=== PATIENT | female | born 1960 | race Caucasian/White ===

== ENCOUNTER → 2020-05-09 09:47 | Outpatient (BNVA) | payer BC, SELFPAY | PROVIDERS: Family Provider Family Medicine; Referring Provider Family Medicine; Visit Provider Specialist | DX: R20.0 Anesthesia of skin (principal); R20.2 Paresthesia of skin; M79.662 Pain in left lower leg; M79.661 Pain in right lower leg; G62.9 Polyneuropathy, unspecified | CPT/HCPCS: 95910 ==

== ENCOUNTER → 2022-07-23 12:02 | Outpatient (BNVA) | payer BC, SELFPAY | PROVIDERS: Family Provider Family Medicine; PCP Family Medicine; Visit Provider Family Medicine | DX: R79.89 Other specified abnormal findings of blood chemistry (principal) | CPT/HCPCS: 80053; 80061 ==

== ENCOUNTER 2023-05-07 07:14 | Day surgery (SDC) | payer BC, SELFPAY ==
[2023-05-05 13:12] VITALS: BMI 22.6
[2023-05-07 07:30] VITALS: BP 110/71; PULSE 73; RESP 18; TEMP 36.6; O2SAT 97
[2023-05-07] MEDS: sodium chloride 0.9% 1,000 ML 30 ML IV (07:40)
--- NOTE | 2023-05-07 08:07 | ANES.PREANE2 ---
Pre-Anesthetic Assessment Height/Weight: Height 1.6 m Weight 58.06 kg Temp Pulse Resp BP Pulse Ox O2 Del Method 97.8 F 73 18 110/71 97 Room Air 05/07/23 07:30 05/07/23 07:30 05/07/23 07:30 05/07/23 07:30 05/07/23 07:30 05/07/23 07:30 Operation Date: 05/07/23 08:30 Proposed Procedures p EGD(Not Applicable) - Michael Nuno DO s Colonoscopy(Not Applicable) - Michael Nuno DO Was Beta Landon taken within 24 hours: N/A Was Clonidine taken within 24 hours: N/A Last intake: Intake Last Liquid Date 05/06/23 Last Liquid Time 21:00 Last Solid Date 05/05/23 Last Solid Time 21:00 Social No alcohol and No tobacco Exam alert, oriented x 3, clear to auscultation bilaterally and regular rate & rhythm Airway Submandibular: within normal limits Cervical ROM: within normal limits Mallampati: Class III Comments: Comments: bridge uper back right History/ROS No significant history except as noted and No significant complaints Pulmonary None reported CV/HEM None reported None reported Hepatic None reported elevated LFTs GI Gastroesophageal Reflux Disease uncontrolled Musc/skel None reported Neuropsych None reported Anesthetic Plan ASA status: 2 Anesthesia: Anesthesia Evaluation and MAC Risk of > 500 ml blood loss (7ml/kg in children): Yes, adequate IV access and fluids planned Medications/Allergies Home Medications Medication Instructions Recorded Confirmed Last Taken Type pantoprazole 40 mg tablet,delayed 40 mg PO BID 90 days #180 tabs 03/20/23 05/05/23 05/05/23 Rx release (Protonix) ondansetron 8 mg disintegrating 8 mg PO Q8H PRN nausea and 05/06/23 05/07/23 05/06/23 Rx tablet vomiting #20 tabs Allergies Allergy/AdvReac Type Severity Reaction Status Date / Time tolterodine [From Detrol] AdvReac Intermediate rash Verified 05/05/23 13:23 Current Medications Generic Name Dose Route Start Last Admin Trade Name Freq PRN Reason Stop Dose Admin Sodium Chloride 1,000 mls @ 30 mls/hr 05/07/23 07:30 05/07/23 07:40 Sodium Chloride 0.9% IV 05/08/23 07:29 30 mls/hr .Q24H MONA Administration PFSH Anesthesia Medical History (Updated 03/20/23 @ 14:15 by Michael Nuno DO) Actinic keratoses Surgical History (Updated 03/20/23 @ 14:15 by Michael Nuno DO) History of esophagogastroduodenoscopy (EGD) 15 YRS AGO History of reversal of tubal ligation Hx of colonoscopy AGE 51 Hx of tubal ligation Family History Father Cancer BONE AND LIVER Mother Alzheimer disease Social History Smoking and tobacco status: never smoked Alcohol intake: never Data Anesthesia Cardiac Studies: No Data to Display
--- NOTE | 2023-05-07 08:09 | PM.HP ---
Providers/Chief Complaint Primary Care Provider: Robin Rose MD Chief Complaint: Z12.11, K92.0 History of Present Illness Eliana Skinner is a 62 year old female Medications/Allergies Home Medications Medication Instructions Recorded Confirmed Last Taken Type pantoprazole 40 mg tablet,delayed 40 mg PO BID 90 days #180 tabs 03/20/23 05/05/23 05/05/23 Rx release (Protonix) ondansetron 8 mg disintegrating 8 mg PO Q8H PRN nausea and 05/06/23 05/07/23 05/06/23 Rx tablet vomiting #20 tabs Allergies Allergy/AdvReac Type Severity Reaction Status Date / Time tolterodine [From Detrol] AdvReac Intermediate rash Verified 05/05/23 13:23 PFSH Acute PFSH: Medical History (Updated 03/20/23 @ 14:15 by Michael Nuno DO) Actinic keratoses Surgical History (Updated 03/20/23 @ 14:15 by Michael Nuno DO) History of esophagogastroduodenoscopy (EGD) 15 YRS AGO History of reversal of tubal ligation Hx of colonoscopy AGE 51 Hx of tubal ligation Family History Father Cancer BONE AND LIVER Mother Alzheimer disease Social History Smoking and tobacco status: never smoked Alcohol intake: never Vitals/I&O/Wt Last Vital Signs Temp 97.8 F 05/07/23 07:30 Pulse 73 05/07/23 07:30 Resp 18 05/07/23 07:30 BP 110/71 05/07/23 07:30 Pulse Ox 97 05/07/23 07:30 O2 Del Method Room Air 05/07/23 07:30 Weight last 48 hrs Weight 128 lb A&P Assessment and plan (1) GERD (gastroesophageal reflux disease): (2) Colon cancer screening: Plan EGD and colonoscopy Attestations Medical Necessity Statement*: Home Coding Level of Care Code Acute Code for Chg Fwd Diagnoses GERD (gastroesophageal reflux disease) K21.9 Colon cancer screening Z12.11
[2023-05-07 09:01] VITALS: BP 101/69; PULSE 77; RESP 16; TEMP 36.2; O2SAT 93
[2023-05-07 09:20] VITALS: BP 128/78; PULSE 76; RESP 16; O2SAT 96
--- NOTE | 2023-05-07 14:28 | ANE.PACU2 ---
Inpatient post-anesthesia follow up: Airway intact: Yes Vital signs: Temperature 97.1 F Pulse Rate 76 Respiratory Rate 16 Blood Pressure 128/78 Pulse Oximetry 96 Oxygen Delivery Me thod Room Air Oxygen Flow Rate Fraction of Inspir ed Oxygen Hydration adequate: Yes Nausea and vomiting: No Pain level: 2 Mental status: Baseline
== END 2023-05-07 09:29 | disposition home or self-care (01) ==
PROVIDERS: PCP Family Medicine; Visit Provider Surgery
PROC: 0DJ08ZZ Inspection of Upper Intestinal Tract, Via Natural or Artificial Opening Endoscopic (ICD-10-PCS; CPT 43235; principal; 2023-05-07 08:30)
PROC: 0DJD8ZZ Inspection of Lower Intestinal Tract, Via Natural or Artificial Opening Endoscopic (ICD-10-PCS; CPT 45378; 2023-05-07 08:30)
DX: Z12.11 Encounter for screening for malignant neoplasm of colon (principal); K62.1 Rectal polyp; K21.9 Gastro-esophageal reflux disease without esophagitis; K29.50 Unspecified chronic gastritis without bleeding
CPT/HCPCS: 43239; 45385; 88305; 88342; J2704; J7030

== ENCOUNTER 2023-05-16 08:46 | Outpatient (CLI) | payer BC, SELFPAY ==
--- NOTE | 2023-05-16 09:15 | US_ITS ---
WS: [id number] RIGHT UPPER QUADRANT ULTRASOUND HISTORY: abdominal pain, nausea COMPARISON: None available. Liver: 12.3 cm in length. Normal size liver and echogenicity. No bile duct dilatation or mass. Portal Vein: Normal hepatopetal flow with monophasic waveform. Gallbladder: Gallbladder is not identified. There is a large amount of shadowing from the region of t he gallbladder fossa. With no history of a prior cholecystectomy this is probably a stone filled gall bladder. No adjacent inflammation. CBD: 0.4 cm Pancreas: Normal size and echogenicity. Right kidney: 9.4 cm in length. Normal size kidney with no obstruction. Cortical cyst upper pole placido ures 1.9 x 1.5 x 1.3 cm. Aorta and IVC: Unremarkable abdominal aorta and IVC. No ascites. IMPRESSION: 1. Normal gallbladder is not identified. Large amount of shadowing from the gallbladder fossa. This i s most consistent with a stone filled gallbladder. 2. No bile duct dilatation. 3. Simple RIGHT renal cyst.
== END 2023-05-16 08:47 | disposition home or self-care (01) ==
PROVIDERS: PCP Family Medicine; Visit Provider Surgery
DX: R10.9 Unspecified abdominal pain (principal); N28.1 Cyst of kidney, acquired
CPT/HCPCS: 76705

== ENCOUNTER 2023-05-26 15:58 | Emergency (ER) | payer BC, SELFPAY ==
[2023-05-26 16:11] VITALS: BP 126/72; PULSE 64; RESP 16; TEMP 36.6; O2SAT 98; BMI 21.7
--- NOTE | 2023-05-26 16:33 | W.ED.ABDPA2 ---
Documented by User: Ru Felix DO 05/27/23 07:39 HPI - Abdominal Pain General: Chief Complaint: Abdominal Pain Stated Complaint: abd pain Time Seen by Provider: 05/26/23 16:20 Source: patient Mode of arrival: ambulatory History of Present Illness: 62-year-old female presents emergency room with complaint of right upper quadrant abdominal pain that began last night has become severe. She has a known history of cholelithiasis is seen general surgery and is scheduled to have. She has been very nauseous no vomiting or diarrhea. Symptoms began overnight and progressively worsened. She has previously seen surgery and is scheduled to have her gallbladder removed for symptomatic cholelithiasis. MD elicited complaint: abdominal pain Pertinent past history: other (Cholelithiasis) Onset (ago): hour(s) Pain Consistency: constant Location: Epigastric and RUQ Severity: severe Quality: sharp Migration to: LUQ Exacerbating factors: eating Relieving factors: nothing Associated Symptoms: Reports anorexia, bloating, GI cramping, nausea, poor appetite and vomiting; Denies belching, change in bowel habits, change in stool character, chills, coffee ground emesis, constipation, diarrhea, dyspepsia, dysuria, excessive flatus, fever(s), heartburn, hematochezia, hematuria, hematemesis, fecal incontinence, loose stools, melena and syncope Review of Systems Const: Denies: fever(s), chills, fatigue or malaise Card: Denies: chest pain, palpitations, irregular heart rhythm or syncope Resp: Denies: dyspnea, productive cough or non-productive cough GI: Reports: abdominal pain, nausea, vomiting, bloating and GI cramping; Denies: hematemesis, coffee ground emesis, heartburn, diarrhea, constipation, belching, excessive flatus, fecal incontinence, change in bowel habits, change in stool character, hematochezia or melena : Denies: dysuria or hematuria Skin/Breast: Denies: rash or pruritus PFSH ED PFSH: Medical History Actinic keratoses Surgical History History of esophagogastroduodenoscopy (EGD) 15 YRS AGO History of reversal of tubal ligation Hx of colonoscopy AGE 51 Hx of tubal ligation Family History Father Cancer BONE AND LIVER Mother Alzheimer disease Social History Smoking and tobacco status: never smoked Alcohol intake: never Physical Exam Const: COMMON NORMALS: no acute distress GENERAL APPEARANCE: cooperative ORIENTATION/CONSCIOUSNESS: Yes awake, Yes oriented to person, Yes oriented to place and Yes oriented to time HENMT: COMMON NORMALS: normocephalic, atraumatic and hearing grossly normal bilaterally HEAD & SCALP: normocephalic and atraumatic Resp: COMMON NORMALS: normal respiratory effort, No retractions, No use of accessory muscles and clear to auscultation bilaterally AUSCULTATION: clear to auscultation bilaterally Cardio: COMMON NORMALS: regular rate, regular rhythm and No murmurs present (Cardio) RATE: regular rate RHYTHM: regular rhythm GI: OTHER: Epigastric and right upper quadrant tenderness positive Lion sign. Extremity: COMMON NORMALS: normal to inspection, capillary refill normal, no clubbing, cyanosis or edema, no calf tenderness and no pedal edema Neuro: SENSORIUM/ORIENTATION: Yes oriented to person, Yes oriented to place and Yes oriented to time Skin: COMMON NORMALS: no rashes or lesions noted GENERAL SKIN EXAM: no rashes or lesions noted Course Vital Signs: Vital signs: Vital Signs Temperature 97.8 F 05/26/23 16:11 Pulse Rate 70 05/26/23 20:51 Respiratory Rate 16 05/26/23 20:51 Blood Pressure 126/72 05/26/23 16:11 Pulse Oximetry 99 05/26/23 20:51 Oxygen Delivery Il thod Room Air 05/26/23 16:11 MDM - Abdominal Pain Medical Decision Making Labs reviewed patient has evidence of choledocholithiasis. She started on Zosyn. Will need transferred for ERCP. Care signed out to Dr. Amado at change of shift. See final notes for diagnosis and disposition. Patient was turned over to me by daytime doc at shift change. Pt apPeers to have right upper quadrant pain and choledocholithiasis based on lab and imaging patient was given 4 mg of morphine, 1 L of normal saline and Zosyn 3.375 g. Patient was eventually accepted at [facility] by Dr. Varghese hospitalist. Medical Records I reviewed the patient's medical records. Lab Data I reviewed the patient's lab results. 05/26/23 16:44 05/26/23 16:44 Labs/Radiology: Radiology Impressions Gallbladder Ultrasound 05/26/23 17:35 IMPRESSION: 1. The gallbladder is filled with stones associated with mild dilatation of the common bile duct measuring 8.1 mm. 2. Gallbladder wall is not optimally evaluated secondary to adjacent shadowing stones however is possibly thickened measuring 4.3 mm, raising concern for acute cholecystitis. Please correlate clinically. Laboratory Results WBC 7.03 10^3/uL (3.29-11.43) 05/26/23 16:44 RBC 4.25 10^6/uL (3.85-5.65) 05/26/23 16:44 Hgb 13.60 g/dL (11.27-16.99) 05/26/23 16:44 Hct 40.9 % (36-47) 05/26/23 16:44 MCV 96.2 fl (85-98) 05/26/23 16:44 MCH 32.0 pg (27-33) 05/26/23 16:44 MCHC 33.3 g/dL (30-55) 05/26/23 16:44 RDW 12.5 % (12.1-15.1) 05/26/23 16:44 Plt Count 231 10^3/cmm (157-399) 05/26/23 16:44 MPV 10.8 fL (7.4-10.4) H 05/26/23 16:44 Neut % (Auto) 81.0 % 05/26/23 16:44 Lymph % (Auto) 9.4 % 05/26/23 16:44 [place] % (Auto) 8.3 % 05/26/23 16:44 Eos % (Auto) 0.4 % 05/26/23 16:44 Baso % (Auto) 0.3 % 05/26/23 16:44 Neut # (Auto) 5.70 10^3/uL (1.8-7.7) 05/26/23 16:44 Lymph # (Auto) 0.7 10^3/uL (0.8-4.8) L 05/26/23 16:44 [place] # (Auto) 0.6 10^3/uL (0.2-0.9) 05/26/23 16:44 Eos # (Auto) 0.0 10^3/uL (0.0-0.8) 05/26/23 16:44 Baso # (Auto) 0.0 10^3/uL (0.0-0.1) 05/26/23 16:44 Nucleated RBC % (auto) 0 % 05/26/23 16:44 Nucleated RBCs # 0.0 /100WBC 05/26/23 16:44 Sodium 140 mmol/L (136-145) 05/26/23 16:44 Potassium 4.2 mmol/L (3.5-5.1) 05/26/23 16:44 Chloride 101 mmol/L (98-107) 05/26/23 16:44 Carbon Dioxide 26 mmol/L (22-29) 05/26/23 16:44 Anion Gap 17.2 (5-19) 05/26/23 16:44 BUN 12 mg/dL (8-23) 05/26/23 16:44 Creatinine 0.5 mg/dL (0.5-0.9) 05/26/23 16:44 GFR Calculation 125.4 mL/min (90-130) 05/26/23 16:44 Glucose 131 mg/dL (65-115) H 05/26/23 16:44 Calculated Osmolality 292 mOsm/kg (285-295) 05/26/23 16:44 Lactic Acid 1.2 mmol/L (0.5-2.2) 05/26/23 16:44 Calcium 9.9 mg/dL (8.5-10.5) 05/26/23 16:44 Total Bilirubin 2.8 mg/dL (0.15-1.2) H 05/26/23 16:44 AST 219 U/L (0-32) H 05/26/23 16:44 ALT 182 U/L (0-33) H 05/26/23 16:44 Alkaline Phosphatase 361 U/L (35-105) H 05/26/23 16:44 Total Protein 7.7 g/dL (6.6-8.7) 05/26/23 16:44 Albumin 4.4 g/dL (3.5-5.2) 05/26/23 16:44 Globulin 3.3 g/dL (1.3-4.6) 05/26/23 16:44 Lipase > 3826 U/L (13-60) H 05/26/23 16:44 Discharge Plan Discharge Patient Disposition: Xfer Short-Term Hosp Clinical Impression: Choledocholithiasis Condition: Stable Referrals: Robin Rose MD [Primary Care Provider] - Coding Level of Care Code ED Repairer Auto Clocks for Chg Fwd Documented by User: Richard Amado DO 05/26/23 18:48 HPI - Abdominal Pain General: Chief Complaint: Abdominal Pain Stated Complaint: abd pain Time Seen by Provider: 05/26/23 16:20 Review of Systems General: Reports: 10 or more systems reviewed and unremarkable except in HPI and below PFSH ED PFSH: Medical History Actinic keratoses Surgical History History of esophagogastroduodenoscopy (EGD) 15 YRS AGO History of reversal of tubal ligation Hx of colonoscopy AGE 51 Hx of tubal ligation Family History Father Cancer BONE AND LIVER Mother Alzheimer disease Social History Smoking and tobacco status: never smoked Alcohol intake: never Physical Exam Const: COMMON NORMALS: average body habitus, patient oriented x3, no limitations, healthy appearing, alert and well nourished HENMT: COMMON NORMALS: normocephalic, atraumatic, hearing grossly normal bilaterally, Normal external nose present and moist oral mucous membranes HEAD & SCALP: normocephalic and atraumatic NOSE: Normal external nose present Neck/C-Spine: COMMON NORMALS: full ROM, no lymphadenopathy, supple, no meningeal signs, no JVD and Thyroid normal THYROID: Thyroid normal Lymph: LYMPHATIC: no lymphadenopathy noted Chest: COMMONS NORMALS: normal inspection of the chest and normal palpation of entire chest wall Resp: COMMON NORMALS: normal respiratory effort, No retractions, No use of accessory muscles and clear to auscultation bilaterally AUSCULTATION: clear to auscultation bilaterally Cardio: COMMON NORMALS: no JVD, regular rate, regular rhythm, S1 normal heart sound present, S2 normal heart sound present, No gallops present (Cardio), No clicks present (Cardio), No murmurs present (Cardio) and No rub (Cardio) RATE: regular rate RHYTHM: regular rhythm HEART SOUNDS: S1 normal heart sound present and S2 normal heart sound present GI: COMMON NORMALS: Normal to inspection, nondistended, normoactive bowel sounds present, Soft to palpation, No hepatosplenomegaly present and no masses; negative for non-tender (Tender to palpate over right upper quadrant) PALPATION: Yes Soft to palpation and Yes No hepatosplenomegaly present : COMMON NORMALS: Yes no CVA tenderness BLADDER/KIDNEY EXAM: Yes no CVA tenderness Back/Pelvis: COMMON NORMALS: no CVA tenderness Neuro: COMMON NORMALS: patient oriented x3 SENSORIUM/ORIENTATION: Yes alert MENINGEAL SIGNS: Yes no meningeal signs Course Vital Signs: Vital signs: Vital Signs Temperature 97.8 F 05/26/23 16:11 Pulse Rate 70 05/26/23 20:51 Respiratory Rate 16 05/26/23 20:51 Blood Pressure 126/72 05/26/23 16:11 Pulse Oximetry 99 05/26/23 20:51 Oxygen Delivery Il thod Room Air 05/26/23 16:11 MDM - Abdominal Pain Medical Decision Making Patient was turned over to pr by daytime doc at shift change. Pt apPeers to have right upper quadrant pain and choledocholithiasis based on lab and imaging patient was given 4 mg of morphine, 1 L of normal saline and Zosyn 3.375 g. Patient was eventually accepted at [facility] by Dr. Varghese hospitalist. Differential Diagnosis Unlikely abdominal pain, acute appendicitis, calculus of kidney, constipation, diverticulitis, endometriosis, gastroenteritis, pancreatitis or small bowel obstruction Medical Records I reviewed the patient's medical records. Lab Data I reviewed the patient's lab results. 05/26/23 16:44 05/26/23 16:44 Labs/Radiology: Radiology Impressions Gallbladder Ultrasound 05/26/23 17:35 IMPRESSION: 1. The gallbladder is filled with stones associated with mild dilatation of the common bile duct measuring 8.1 mm. 2. Gallbladder wall is not optimally evaluated secondary to adjacent shadowing stones however is possibly thickened measuring 4.3 mm, raising concern for acute cholecystitis. Please correlate clinically. Laboratory Results WBC 7.03 10^3/uL (3.29-11.43) 05/26/23 16:44 RBC 4.25 10^6/uL (3.85-5.65) 05/26/23 16:44 Hgb 13.60 g/dL (11.27-16.99) 05/26/23 16:44 Hct 40.9 % (36-47) 05/26/23 16:44 MCV 96.2 fl (85-98) 05/26/23 16:44 MCH 32.0 pg (27-33) 05/26/23 16:44 MCHC 33.3 g/dL (30-55) 05/26/23 16:44 RDW 12.5 % (12.1-15.1) 05/26/23 16:44 Plt Count 231 10^3/cmm (157-399) 05/26/23 16:44 MPV 10.8 fL (7.4-10.4) H 05/26/23 16:44 Neut % (Auto) 81.0 % 05/26/23 16:44 Lymph % (Auto) 9.4 % 05/26/23 16:44 [place] % (Auto) 8.3 % 05/26/23 16:44 Eos % (Auto) 0.4 % 05/26/23 16:44 Baso % (Auto) 0.3 % 05/26/23 16:44 Neut # (Auto) 5.70 10^3/uL (1.8-7.7) 05/26/23 16:44 Lymph # (Auto) 0.7 10^3/uL (0.8-4.8) L 05/26/23 16:44 [place] # (Auto) 0.6 10^3/uL (0.2-0.9) 05/26/23 16:44 Eos # (Auto) 0.0 10^3/uL (0.0-0.8) 05/26/23 16:44 Baso # (Auto) 0.0 10^3/uL (0.0-0.1) 05/26/23 16:44 Nucleated RBC % (auto) 0 % 05/26/23 16:44 Nucleated RBCs # 0.0 /100WBC 05/26/23 16:44 Sodium 140 mmol/L (136-145) 05/26/23 16:44 Potassium 4.2 mmol/L (3.5-5.1) 05/26/23 16:44 Chloride 101 mmol/L (98-107) 05/26/23 16:44 Carbon Dioxide 26 mmol/L (22-29) 05/26/23 16:44 Anion Gap 17.2 (5-19) 05/26/23 16:44 BUN 12 mg/dL (8-23) 05/26/23 16:44 Creatinine 0.5 mg/dL (0.5-0.9) 05/26/23 16:44 GFR Calculation 125.4 mL/min (90-130) 05/26/23 16:44 Glucose 131 mg/dL (65-115) H 05/26/23 16:44 Calculated Osmolality 292 mOsm/kg (285-295) 05/26/23 16:44 Lactic Acid 1.2 mmol/L (0.5-2.2) 05/26/23 16:44 Calcium 9.9 mg/dL (8.5-10.5) 05/26/23 16:44 Total Bilirubin 2.8 mg/dL (0.15-1.2) H 05/26/23 16:44 AST 219 U/L (0-32) H 05/26/23 16:44 ALT 182 U/L (0-33) H 05/26/23 16:44 Alkaline Phosphatase 361 U/L (35-105) H 05/26/23 16:44 Total Protein 7.7 g/dL (6.6-8.7) 05/26/23 16:44 Albumin 4.4 g/dL (3.5-5.2) 05/26/23 16:44 Globulin 3.3 g/dL (1.3-4.6) 05/26/23 16:44 Lipase > 3826 U/L (13-60) H 05/26/23 16:44 Discharge Plan Discharge Patient Disposition: Xfer Short-Term Hosp Clinical Impression: Choledocholithiasis Condition: Stable Referrals: Robin Rose MD [Primary Care Provider] - Coding Level of Care Code ED Repairer Auto Clocks for Amanda Corley
[2023-05-26 16:54] LABS: Basophils % 0.3 %; Eosinophils % 0.4 %; Hematocrit 40.9 % (36-47); Lymphocytes # 0.7 10^3/uL (0.8-4.8); Lymphocytes % 9.4 %; Mean Corpuscular HGB Conc 33.3 g/dL (30-55); Mean Corpuscular Volume 96.2 fl (85-98); Mean Platelet Volume 10.8 fL (7.4-10.4); Monocytes # 0.6 10^3/uL (0.2-0.9); Monocytes % 8.3 %; Nucleated Red Blood Cells % 0 %; Platelet Count 231 10^3/cmm (157-399); Red Blood Count 4.25 10^6/uL (3.85-5.65); Red Cell Distribution Width 12.5 % (12.1-15.1); White Blood Count 7.03 10^3/uL (3.29-11.43)
[2023-05-26 16:56] VITALS: RESP 18; O2SAT 98
[2023-05-26] MEDS: sodium chloride 0.9% 1,000 ML 999 ML IV (16:56)
[2023-05-26] MEDS: morphine 4 mg/mL SDV 1 mL IVP ×2 (16:56→20:26)
[2023-05-26] MEDS: ondansetron 2 mg/ML SDV 2 mL 4 MG IVP ×2 (16:57→20:24)
[2023-05-26 17:19] LABS: Alanine Aminotransferase 182 U/L (0-33); Albumin Level 4.4 g/dL (3.5-5.2); Alkaline Phosphatase 361 U/L (35-105); Anion Gap 17.2 (5-19); Aspartate Amino Transferase 219 U/L (0-32); Blood Urea Nitrogen 12 mg/dL (8-23); Calcium 9.9 mg/dL (8.5-10.5); Carbon Dioxide 26 mmol/L (22-29); Chloride 101 mmol/L (98-107); Globulin 3.3 g/dL (1.3-4.6); Glomerular Filtration Rate 125.4 mL/min (90-130); Glucose 131 mg/dL (65-115); Osmolality Calculated 292 mOsm/kg (285-295); Potassium 4.2 mmol/L (3.5-5.1); Sodium 140 mmol/L (136-145); Total Bilirubin 2.8 mg/dL (0.15-1.2); Total Protein 7.7 g/dL (6.6-8.7)
[2023-05-26 17:20] LABS: Lactic Sepsis W/Reflex 1.2 mmol/L (0.5-2.2)
--- NOTE | 2023-05-26 17:35 | USR_ITS ---
PROCEDURE INFORMATION: Exam: US Abdomen, Limited; Right Upper Quadrant Exam date and time: 05/26/2023 6:13 PM Age: 62 years old Clinical indication: Abdominal pain; Generalized; Additional info: Cholelithiasis, ruq pain TECHNIQUE: Imaging protocol: Real time ultrasound of the abdomen with image documentation. Limited exam focused on the right upper quadrant. COMPARISON: No relevant prior studies available. FINDINGS: Liver: Normal. No masses. Gallbladder: Gallbladder wall is not optimally visualized secondary to adjacent shadowing stones however is possibly thickened measuring 4.3 mm. Gallbladder is filled with stones. Biliary ducts: Common bile duct is mildly dilated measuring 8.1 mm. Pancreas: Pancreas is not visualized secondary to overlying bowel gas. Right kidney: 1.6 x 1.6 x 1.6 cm simple cyst in the right kidney. US/US gall bladder [id number] IMPRESSION: 1. The gallbladder is filled with stones associated with mild dilatation of the common bile duct measuring 8.1 mm. 2. Gallbladder wall is not optimally evaluated secondary to adjacent shadowing stones however is possibly thickened measuring 4.3 mm, raising concern for acute cholecystitis. Please correlate clinically.
--- NOTE | 2023-05-26 18:13 | DCPLANNER ---
I spoke with Eitan at [facility] and at this time they do not have a GI specialist on for an ERCP. I spoke with Wisam in Int Home no GI on for today. I called [facility] and they are on medsurg divert. Only have ICU bed available, but patient does not meet criteria for an ICU bed.
[2023-05-26] MEDS: piperacillin-tazobactam 3.375 GM in sodium chloride 0.9% (plus) 50 ML IV (18:16)
--- NOTE | 2023-05-26 20:04 | PC.NURSE ---
REport called to Mahnaz Reed rn prior to pt [place].
[2023-05-26 20:26] VITALS: RESP 16
[2023-05-26 20:51] VITALS: PULSE 70; RESP 16; O2SAT 99
== END 2023-05-26 20:52 | disposition short-term general hospital (02) ==
PROVIDERS: Emergency Provider Family Medicine; PCP Family Medicine
DX: K80.50 Calculus of bile duct without cholangitis or cholecystitis without obstruction (principal)
CPT/HCPCS: 76705; 80053; 83605; 83690; 85025; 96365; 96366; 96375; 96376; 99284; J2270; J2405; J2543; J7030

== ENCOUNTER 2023-06-27 11:25 | Emergency (ER) | payer BC, SELFPAY ==
[2023-06-27 11:34] VITALS: BP 115/73; PULSE 89; RESP 16; TEMP 36.6; O2SAT 98; BMI 21.7
--- NOTE | 2023-06-27 11:58 | CT_ITS ---
WS: [id number] CT ABDOMEN PELVIS TECHNIQUE: Contrast-enhanced CT of the abdomen and pelvis with coronal and sagittal reformatted image s. CLINICAL INFORMATION: abdominal pain, post operative COMPARISON: None. DLP: 452.[address] scans at [facility] use at least one of these dose optimization techniques: automated e xposure control; mA and/or kV adjustment per patient size (includes targeted exams where dose is matc hed to clinical indication); or iterative reconstruction. FINDINGS: Surgical drain within the gallbladder fossa. No evidence of drainable fluid collection or abscess. Ex pected pneumobilia. Common bile duct stent in place. Gallbladder is not definitely visualized and may be decompressed or resected. Recommend correlation with operative report. Tiny amount of perihepatic fluid. Portal vein and splenic vein are patent. Subsegmental atelectasis R IGHT lower lobe. Adrenal glands are normal. No hydronephrosis. Urine distended bladder. Disc base narrowing L5-S1. IMPRESSION: 1. No evidence of drainable fluid collection or abscess. 2. Surgical drain in the gallbladder fossa. Gallbladder is not definitely visualized and may be comp letely decompressed or possibly resected. Recommend correlation with surgical report. 3. Common bile duct stent in place. Tip is in the duodenum. 4. Normal portal vein and splenic vein. 5. Incidental pneumobilia. 6. No other suspicious findings. Notified Piero Vasquez MD at 06/27/2023 2:34 PM.
[2023-06-27 12:15] LABS: Basophils % 0.4 %; Eosinophils # 0.2 10^3/uL (0.0-0.8); Eosinophils % 3.1 %; Hematocrit 37.3 % (36-47); Lymphocytes % 19.5 %; Mean Corpuscular HGB Conc 33.5 g/dL (30-55); Mean Corpuscular Hemoglobin 32.3 pg (27-33); Mean Corpuscular Volume 96.4 fl (85-98); Mean Platelet Volume 10.4 fL (7.4-10.4); Monocytes # 0.8 10^3/uL (0.2-0.9); Monocytes % 15.7 %; Neutrophils # 3.14 10^3/uL (1.8-7.7); Neutrophils % 60.7 %; Nucleated Red Blood Cells % 0 %; Platelet Count 228 10^3/cmm (157-399); Red Blood Count 3.87 10^6/uL (3.85-5.65); Red Cell Distribution Width 12.2 % (12.1-15.1); White Blood Count 5.17 10^3/uL (3.29-11.43)
--- NOTE | 2023-06-27 12:22 | ED_ITS ---
HPI - Abdominal Pain General: Chief Complaint: Abdominal Pain Stated Complaint: fever, possibly infected surgery drain Time Seen by Provider: 06/27/23 11:45 History of Present Illness: This 63-year-old female presents to the ER with a nonfunctioning JOEL drain and a little bit of discharge from around the entry site of the JOEL drain. Patient was seen at [facility] on 05/28/2023 when she had a laparoscopic cholecystectomy due to acute cholecystitis. It was not successful so it was converted to an open cholecystectomy. Gallbladder could not be removed so a JOEL drain was inserted. Patient spent about 8 days in the hospital. She was subsequently discharged home. Patient notes that they went to [facility] for right upper quadrant pain on 06/12/2023. Patient's , who has been documenting the amount of discharge in the JOEL drain, noted that over the last few days, the drainage has been minimal. Yesterday there was no drainage at all. They called up to [facility] and they were advised to come to the ER to get a CT abdomen/pelvis. Patient reports that she has been having intermittent fevers especially at night. Last night, her temperature was 101. Patient is afebrile at this time. Associated Symptoms: Reports other (Drainage from around the entry site of JOEL drain.); Denies chills and dysuria Review of Systems Const: Denies: chills, body aches or change in appetite Eyes: Denies: change in vision or eye discharge ENMT: Denies: throat pain, dental pain or nasal discharge Card: Denies: chest pain or lightheadedness GI: Reports: abdominal pain (RUQ) and other (Drainage from around the entry si te of JOEL drain.) : Denies: dysuria Musc: Denies: neck pain or back pain Neuro: Denies: headache(s) or weakness in extremities Psych: Denies: depression Jeff/Lymph: Denies: easy bruising All/Imm: Denies: urticaria, tongue swelling or facial swelling PFSH ED PFSH: Medical History Actinic keratoses Surgical History History of esophagogastroduodenoscopy (EGD) 15 YRS AGO History of reversal of tubal ligation Hx of colonoscopy AGE 51 Hx of tubal ligation Family History Father Cancer BONE AND LIVER Mother Alzheimer disease Social History Smoking and tobacco status: never smoked Alcohol intake: never Physical Exam Const: COMMON NORMALS: no acute distress, patient oriented x3, no limitations and alert HENMT: COMMON NORMALS: normocephalic HEAD & SCALP: normocephalic Eye: COMMON NORMALS: EOMs intact bilaterally Neck/C-Spine: COMMON NORMALS: full ROM and supple Chest: COMMONS NORMALS: normal inspection of the chest Resp: COMMON NORMALS: normal respiratory effort, No retractions, No use of accessory muscles and clear to auscultation bilaterally AUSCULTATION: clear to auscultation bilaterally Cardio: COMMON NORMALS: regular rate, regular rhythm and No murmurs present (Cardio) RATE: regular rate RHYTHM: regular rhythm GI: OTHER: Presence of JOEL drain in the right upper quadrant. Minimal amount of purulent material on the dressing covering the entry site of the JOEL drain. JOEL drain is empty at this time. Tenderness on palpation of the right upper quadrant. Abdomen is soft, not distended and nonrigid. Normal bowel sounds. : COMMON NORMALS: Yes no CVA tenderness BLADDER/KIDNEY EXAM: Yes no CVA tenderness Back/Pelvis: COMMON NORMALS: no CVA tenderness and no thoracic nor lumbar tenderness Extremity: GENERAL: Yes normal exam except as noted Neuro: COMMON NORMALS: patient oriented x3 and no focal motor deficits SENSORIUM/ORIENTATION: Yes alert Psych: COMMON NORMALS: mental status grossly normal and cooperative Course Consultations: Consultation #1: I had an extensive discussion with Dr. Fatima with liver transplant at [facility]. Dr. Wilkins is not available at this time. Given that there is no organized collection, it is understandable that there is nothing draining out of the JOEL tube. In addition, with a normal white count, no left shift and in the absence of fever, it is reasonable to believe that patient has no systemic infection at this time. Patient's LFT is normal and there are no visible stones on the CT. Dr. South advises that it is not necessary to start patient on antibiotics. However I advised patient to clean the entry site of the JOEL tube and apply pnrn-[id number] triple antibiotics to it at least twice a day. Dr. Fatima will schedule a follow-up appointment with Dr. Wilkins on . I made patient aware of this discussion and patient agreed to go up to Dr. Wilkins's office on . Vital Signs: Vital signs: Vital Signs Temperature 97.8 F 06/27/23 11:34 Pulse Rate 70 06/27/23 15:00 Respiratory Rate 16 06/27/23 11:34 Blood Pressure 124/62 06/27/23 13:09 Pulse Oximetry 99 06/27/23 15:00 Oxygen Delivery Me thod Room Air 06/27/23 15:00 MDM - Abdominal Pain Medical Decision Making I had an extensive discussion with Dr. Fatima with liver transplant at [facility]. Dr. Wilkins is not available at this time. Given that there is no organized collection, it is understandable that there is nothing draining out of the JOEL tube. In addition, with a normal white count, no left shift and in the absence of fever, it is reasonable to believe that patient has no systemic infection at this time. Patient's LFT is normal and there are no visible stones on the CT. Dr. South advises that it is not necessary to start patient on antibiotics. However I advised patient to clean the entry site of the JOEL tube and apply yfsp-cih-[id number] triple antibiotics to it at least twice a day. Dr. Fatima will schedule a follow-up appointment with Dr. Wilkins on . I made patient aware of this discussion and patient agreed to go up to Dr. Wilkins's office on . Lab Data 06/27/23 12:10 06/27/23 12:10 Labs/Radiology: Laboratory Results WBC 5.17 10^3/uL (3.29-11.43) 06/27/23 12:10 RBC 3.87 10^6/uL (3.85-5.65) 06/27/23 12:10 Hgb 12.50 g/dL (11.27-16.99) 06/27/23 12:10 Hct 37.3 % (36-47) 06/27/23 12:10 MCV 96.4 fl (85-98) 06/27/23 12:10 MCH 32.3 pg (27-33) 06/27/23 12:10 MCHC 33.5 g/dL (30-55) 06/27/23 12:10 RDW 12.2 % (12.1-15.1) 06/27/23 12:10 Plt Count 228 10^3/cmm (157-399) 06/27/23 12:10 MPV 10.4 fL (7.4-10.4) 06/27/23 12:10 Neut % (Auto) 60.7 % 06/27/23 12:10 Lymph % (Auto) 19.5 % 06/27/23 12:10 Stewart % (Auto) 15.7 % 06/27/23 12:10 Eos % (Auto) 3.1 % 06/27/23 12:10 Baso % (Auto) 0.4 % 06/27/23 12:10 Neut # (Auto) 3.14 10^3/uL (1.8-7.7) 06/27/23 12:10 Lymph # (Auto) 1.0 10^3/uL (0.8-4.8) 06/27/23 12:10 Stewart # (Auto) 0.8 10^3/uL (0.2-0.9) 06/27/23 12:10 Eos # (Auto) 0.2 10^3/uL (0.0-0.8) 06/27/23 12:10 Baso # (Auto) 0.0 10^3/uL (0.0-0.1) 06/27/23 12:10 Nucleated RBC % (auto) 0 % 06/27/23 12:10 Nucleated RBCs # 0.0 /100WBC 06/27/23 12:10 Sodium 137 mmol/L (136-145) 06/27/23 12:10 Potassium 3.8 mmol/L (3.5-5.1) 06/27/23 12:10 Chloride 99 mmol/L (98-107) 06/27/23 12:10 Carbon Dioxide 29 mmol/L (22-29) 06/27/23 12:10 Anion Gap 12.8 (5-19) 06/27/23 12:10 BUN 12 mg/dL (8-23) 06/27/23 12:10 Creatinine 0.5 mg/dL (0.5-0.9) 06/27/23 12:10 GFR Calculation 125.0 mL/min (90-130) 06/27/23 12:10 Glucose 93 mg/dL (65-115) 06/27/23 12:10 Calculated Osmolality 283 mOsm/kg (285-295) L 06/27/23 12:10 Lactic Acid 0.7 mmol/L (0.5-2.2) 06/27/23 12:10 Calcium 9.3 mg/dL (8.5-10.5) 06/27/23 12:10 Total Bilirubin 0.8 mg/dL (0.15-1.2) 06/27/23 12:10 AST 21 U/L (0-32) 06/27/23 12:10 ALT 12 U/L (0-33) 06/27/23 12:10 Alkaline Phosphatase 87 U/L (35-105) 06/27/23 12:10 Total Protein 7.6 g/dL (6.6-8.7) 06/27/23 12:10 Albumin 4.0 g/dL (3.5-5.2) 06/27/23 12:10 Globulin 3.6 g/dL (1.3-4.6) 06/27/23 12:10 Lipase 30 U/L (13-60) 06/27/23 12:10 All radiology interpretation(s) finalized by discharge Discharge Plan Discharge Patient Disposition: Home Clinical Impression: Post-operative pain Condition: Stable Prescriptions: No Action ondansetron 8 mg tablet,disintegrating 8 mg PO Q8H PRN (Reason: nausea and vomiting) Qty: 20 0RF amoxicillin-pot clavulanate 875-125 mg tablet 1 tab PO BID Discharge Orders: Discharge ED (Routine); Ordered 06/27/23 Ordered By: Piero Vasquez Referrals: Robin Rose MD [Primary Care Provider] - Discharge Diet: Usual diet Discharge Activity: Resume usual activity Patient Instructions: Opioid Safety, Pain Management Activity Restrictions/Additional Instructions: Clean the skin surrounding the JOEL drain and apply quyh-[id number]-[id number] triple antibiotic ontment twice a day. An appointment will be set up for you with Dr. Wilkins at [facility] on . Be sure to go for the appointment. Continue taking your usual home medications. Return to the ER with any new or worsening symptoms. 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
[2023-06-27 12:51] LABS: Alanine Aminotransferase 12 U/L (0-33); Alkaline Phosphatase 87 U/L (35-105); Anion Gap 12.8 (5-19); Aspartate Amino Transferase 21 U/L (0-32); Blood Urea Nitrogen 12 mg/dL (8-23); Calcium 9.3 mg/dL (8.5-10.5); Carbon Dioxide 29 mmol/L (22-29); Chloride 99 mmol/L (98-107); Globulin 3.6 g/dL (1.3-4.6); Glucose 93 mg/dL (65-115); Lipase 30 U/L (13-60); Osmolality Calculated 283 mOsm/kg (285-295); Potassium 3.8 mmol/L (3.5-5.1); Sodium 137 mmol/L (136-145); Total Bilirubin 0.8 mg/dL (0.15-1.2); Total Protein 7.6 g/dL (6.6-8.7)
[2023-06-27 12:59] LABS: Lactic Sepsis W/Reflex 0.7 mmol/L (0.5-2.2)
[2023-06-27 13:09] VITALS: BP 124/62; PULSE 84; O2SAT 97
[2023-06-27] MEDS: iohexol 350 mg/mL 500 mL Btl (per mL) IV (13:46)
[2023-06-27 15:00] VITALS: PULSE 70; O2SAT 99
== END 2023-06-27 16:33 | disposition home or self-care (01) ==
PROVIDERS: Emergency Provider Family Medicine; PCP Family Medicine
DX: G89.18 Other acute postprocedural pain (principal)
CPT/HCPCS: 36415; 74177; 80053; 83605; 83690; 85025; 87040; 99285; Q9967

== ENCOUNTER → 2024-07-01 10:52 | Outpatient (BNVA) | payer BC, SELFPAY | PROVIDERS: PCP Family Medicine; Visit Provider Family Medicine | DX: Z00.00 Encounter for general adult medical examination without abnormal findings (principal); Z78.9 Other specified health status | CPT/HCPCS: 80053; 80061; 87624 ==

== ENCOUNTER → 2024-11-18 08:48 | Outpatient (BNVA) | payer BC, SELFPAY | PROVIDERS: PCP Family Medicine; Visit Provider Family Medicine | DX: G62.9 Polyneuropathy, unspecified (principal) | CPT/HCPCS: 80048; 82607; 83036; 84443; 86140 ==

== ENCOUNTER → 2024-12-21 09:11 | Outpatient (BNVA) | payer BC, SELFPAY | PROVIDERS: PCP Family Medicine; Visit Provider Podiatrist Foot & Ankle Surgery | DX: M79.671 Pain in right foot (principal); M79.672 Pain in left foot; G62.9 Polyneuropathy, unspecified | CPT/HCPCS: 36415; 73630; 85651; 86038; 86140; 86200; 86235; 86431 ==

== ENCOUNTER → 2025-05-12 09:49 | Outpatient (BNVA) | payer BC, SELFPAY | PROVIDERS: PCP Family Medicine; Visit Provider Family Medicine | DX: K29.70 Gastritis, unspecified, without bleeding (principal) | CPT/HCPCS: 80053; 83690; 85025 ==

== ENCOUNTER 2025-06-23 06:35 | Day surgery (SDC) | payer BC, SELFPAY ==
[2025-06-23 06:39] VITALS: BP 121/75; PULSE 65; RESP 18; TEMP 36.5; O2SAT 98; BMI 23.0
--- NOTE | 2025-06-23 07:05 | ANES.PREANE2 ---
Pre-Anesthetic Assessment Height/Weight: Height 5 ft 3 in Weight 130 lb Temp Pulse Resp BP Pulse Ox O2 Del Method 97.7 F 65 18 121/75 98 Room Air 06/23/25 06:39 06/23/25 06:39 06/23/25 06:39 06/23/25 06:39 06/23/25 06:39 06/23/25 06:39 Preop Diagnosis: GERD Operation Date: 06/23/25 07:40 Proposed Procedures p EGD EGD with Biopsy 36629 K21.9(Not Applicable) - Alex Stokes MD Was Beta Landon taken within 24 hours: N/A Was Clonidine taken within 24 hours: N/A Last intake: Intake Last Liquid Date 06/22/25 Last Liquid Time 23:00 Last Solid Date 06/22/25 Last Solid Time 14:30 Social No alcohol and No tobacco Exam alert, oriented x 3, clear to auscultation bilaterally and regular rate & rhythm Airway Submandibular: within normal limits Cervical ROM: within normal limits Mallampati: Class II Dentition: full Anesthetic Plan ASA status: 2 Anesthesia: MAC Other: No prior issues with anesthesia NPO since yesterday afternoon around 230 Patient has uncontrolled GERD and abdominal pain. States that the medications they put her on were not helping so she stopped them about 2 weeks ago Denies any cardiac or pulmonary issues Labs reviewed from 05/12/2025 and acceptable for procedure Plan for MAC anesthesia Medications/Allergies Home Medications ?Medication ?Instructions ?Recorded ?Confirmed ?Last Taken ?Type No Known Home Medications 06/22/25 06/22/25 Unknown History Allergies Allergy/AdvReac Type Severity Reaction Status Date / Time tolterodine (From Detrol) AdvReac Intermediate rash Verified 06/23/25 06:44 Current Medications Generic Name Dose Route Start Last Admin Trade Name Freq PRN Reason Stop Dose Admin Sodium Chloride 1,000 mls @ 15 mls/hr 06/23/25 06:34 06/23/25 06:53 Sodium Chloride 0.9% IV 06/24/25 06:33 15 mls/hr .Q24H PRN Administration COLONOSCOPY FLUIDS PFSH Anesthesia Medical History Actinic keratoses Surgical History History of cholecystectomy Complicated course with an open attempt and rupture of the gallbladder performed 06/2023 Hx of tubal ligation History of reversal of tubal ligation Hx of colonoscopy AGE 51 History of esophagogastroduodenoscopy (EGD) 15 YRS AGO Family History Father Cancer BONE AND LIVER Mother Alzheimer disease Social History Smoking and tobacco/nicotine status: never used tobacco/nicotine Alcohol intake: never
--- NOTE | 2025-06-23 07:27 | W.PM.OPSUD ---
Surgery/Procedure H&P Update DATE OF PROCEDURE: June 23, 2025 DATE H&P PERFORMED: 06/08/25 H&P UPDATE INFORMATION: I have reviewed H&P completed within last 30 days, I have examined patient prior to procedure, No changes to prior documentation, H&P is in [facility] EMR on date indicated and Risks and benefits of the procedure reviewed PREOP DIAGNOSIS: GERD PLANNED PROCEDURE: Operation Date: 06/23/25 07:40 Proposed Procedures p EGD EGD with Biopsy [id number] K21.9(Not Applicable) - Alex Stokes MD
[2025-06-23 07:46] VITALS: BP 132/74; PULSE 92; RESP 18; TEMP 36.1; O2SAT 97
[2025-06-23 08:00] VITALS: BP 107/84; PULSE 68; RESP 18; O2SAT 98
--- NOTE | 2025-06-23 08:20 | ANE.PACU2 ---
Inpatient post-anesthesia follow up: Airway intact: Yes Vital signs: Temperature 97 F Pulse Rate 68 Respiratory Rate 18 Blood Pressure 107/84 Pulse Oximetry 98 Oxygen Delivery Me thod Room Air Oxygen Flow Rate Fraction of Inspir ed Oxygen Hydration adequate: Yes Nausea and vomiting: No Pain level: 1 Mental status: Baseline
== END 2025-06-23 08:20 | disposition home or self-care (01) ==
PROVIDERS: PCP Family Medicine; Visit Provider Surgery
PROC: 0DJ08ZZ Inspection of Upper Intestinal Tract, Via Natural or Artificial Opening Endoscopic (ICD-10-PCS; principal; 2025-06-23 07:40)
DX: K21.9 Gastro-esophageal reflux disease without esophagitis (principal); K44.9 Diaphragmatic hernia without obstruction or gangrene; K29.70 Gastritis, unspecified, without bleeding; R12 Heartburn
CPT/HCPCS: 43239; 88305; J2704; J3490; J7030; J9999